=== PATIENT | male | born 2000 | race Two or more races ===

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

== ENCOUNTER 2023-08-05 08:10 | Emergency (ER) | payer MEDICAID ==
[~2023-08-05] VITALS: Ht 185.4 cm; Wt 112.0 kg
[2023-08-05] MEDS: ACETAMINOPHEN 500 MG TAB PO ONE (08:32)
[2023-08-05 08:51] VITALS: BP 153/13; PULSE 118; RESP 18; O2SAT 93
[2023-08-05] MEDS: cefTRIAXone SOD 1,000 MG VL IM ONE (09:15)
[2023-08-05] MEDS: methylPREDNISolone SOD SUCC 125 MG/2 ML VL IM ONE (09:15)
[2023-08-05 09:16] VITALS: TEMP 98.2
[2023-08-05] MEDS ORDERED: PENI500T2 PO (09:32)
[2023-08-05] MEDS ORDERED: LIDO2SOL26 MT (09:32)
== END 2023-08-05 09:35 | disposition home or self-care (01) ==
LOC: ER 08:10
DX: J03.90 Acute tonsillitis, unspecified (principal)
CPT/HCPCS: 96372; 99284; J0696; J2919